=== PATIENT | female | born 1985 ===

== ENCOUNTER 2017-06-03 14:45 | Emergency (ER) | payer OTHER ==
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
--- NOTE | 2017-06-03 16:36 | RAD ---
PROCEDURE: Cervical Spine Radiographs. HISTORY: Pain. COMPARISON: None. FINDINGS: BONES: Reversal of the anatomic lordosis with kyphosis. Degree: Mild. . No fracture. Dens Intact. DISC SPACES: Normal. SOFT TISSUES: Normal. No prevertebral soft tissue swelling. OTHER FINDINGS: None. IMPRESSION: Mild kyphosis replacing anatomic lordosis. No acute or significant findings otherwise identified
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
[2017-06-03 16:42] VITALS: BP 103/67; PULSE 82; RESP 19; TEMP 97.8; O2SAT 100
== END 2017-06-03 17:11 | disposition home or self-care (01) ==
LOC: ED 14:45
DX: R51 Headache (principal); S16.1XXA Strain of muscle, fascia and tendon at neck level, initial encounter; S39.012A Strain of muscle, fascia and tendon of lower back, initial encounter; V43.52XA Car driver injured in collision with other type car in traffic accident, initial encounter; Y92.410 Unspecified street and highway as the place of occurrence of the external cause